=== PATIENT | female | born 1970 | race African-American/Black ===

== ENCOUNTER 2020-11-24 16:40 | Emergency (ER) | payer MEDICAID ==
[~2020-11-24] VITALS: Ht 162.6 cm; Wt 50.0 kg
[2020-11-24] MEDS ORDERED: SODIUM CHLORIDE 0.9% 1,000 ML IV ONE (18:45)
[2020-11-24 18:54] LABS: BASOPHILS % 0.2 % (0.0-2.0); EOSINOPHILS % 0.5 % (0.0-5.0); HEMATOCRIT. 38.8 % (36.0-48.0); HEMOGLOBIN. 12.9 g/dL (12.0-16.0); LYMPHOCYTES % 31.4 % (20.0-50.0); MEAN CORPUSCULAR HEMOGLOBIN 29.2 pg (28.0-32.0); MEAN CORPUSCULAR VOLUME 87.8 fL (81.0-99.0); MEAN PLATELET VOLUME 7.5 fl (7.4-10.4); MONOCYTES % 5.3 % (2.0-8.0); NEUTROPHILS % 62.6 % (40.0-76.0); PLATELET 240 x1000/uL (130-400); RED BLOOD CELL COUNT 4.42 mill/uL (4.2-5.4); RED CELL DISTRIBUTION WIDTH 14.5 % (11.6-14.6)
[2020-11-24 19:01] LABS: CHLORIDE 111 mEq/L (98-107)
[2020-11-24 19:04] LABS: INR 1.1; PROTHROMBIN TIME 11.7 sec (9.6-11.0)
[2020-11-24 20:02] LABS: CLARITY URINE CLEAR (CLEAR); COLOR URINE YELLOW (YELLOW); KETONES URINE NEGATIVE (NEGATIVE); LEUKOCYTE ESTERASE URINE NEGATIVE (NEGATIVE); NITRITE URINE NEGATIVE (NEGATIVE); OCCULT BLOOD URINE NEGATIVE (NEGATIVE); PROTEIN URINE TRACE (NEGATIVE); SPECIFIC GRAVITY URINE 1.014 (1.005-1.030); UROBILINOGEN URINE 0.2 E.U./dL (0.2-1.0)
[2020-11-25] MEDS ORDERED: ACET650T37 MT (03:10)
[2020-11-25 05:10] VITALS: BP 148/80
== END 2020-11-25 05:31 | disposition home or self-care (01) ==
LOC: ER 16:40
DX: R51.9 Headache, unspecified (principal); R53.1 Weakness; R45.851 Suicidal ideations; I10 Essential (primary) hypertension
CPT/HCPCS: 36415; 70450; 71045; 80053; 81003; 85025; 85610; 93005; 96360; 96361; 99285; J7030